=== PATIENT | male | born 1995 | race Caucasian/White ===

== ENCOUNTER 2022-06-23 11:31 | Emergency (ER) | payer SELFPAY ==
[2022-06-23 11:44] VITALS: BP 154/90; PULSE 93; RESP 18; TEMP 36.4; O2SAT 99; BMI 35.6
--- NOTE | 2022-06-23 11:48 | XR_ITS ---
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 Views: 2 or 3 views hip with pelvis when performed. COMPARISON: CR XR LUMBAR SPINE 2-3V 06/23/2022 11:47 AM FINDINGS: Bones/joints: Unremarkable. No acute fracture. Soft tissues: Unremarkable. IMPRESSION: No evidence of acute osseous injury.
--- NOTE | 2022-06-23 11:48 | XR_ITS ---
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 Views: 2 or 3 views. COMPARISON: No relevant prior studies available. FINDINGS: Bones/joints: Slight retrolisthesis of L5 with respect S1. Soft tissues: Unremarkable. IMPRESSION: No evidence of acute osseous injury.
--- NOTE | 2022-06-23 12:01 | EXP.UTC ---
Discharge Plan Disposition Patient Disposition: Home, Self-Care Condition: Good Prescriptions Prescriptions: New cyclobenzaprine 10 mg Tablet 10 mg PO BID PRN (Reason: Muscle Spasm) Qty: 20 0RF ibuprofen [IBU] 800 mg tablet 800 mg PO Q8HP PRN (Reason: Moderate Pain) Qty: 30 0RF Referrals Follow up/Referrals: Artem Corona MD [Staff Physician] - See instructions Activity Restrictions/Add. Instructions Additional Instructions/Restrictions: Go home and rest. You need to rest for the next couple of days. No heavy lifting. No twisting for the next 5 days. Take the oral medications as directed. The muscle relaxer (cyclobenzaprine--Flexeril) will make you drowsy, so don't drive or operate heavy machinery after taking it. Follow up with your regular doctor. GO TO THE ER FOR ANY WORSENING SYMPTOMS OR CONCERN, ESPECIALLY BOWEL OR BLADDER ISSUES, SADDLE AREA NUMBNESS, FEVER, ETC If you continue to have symptom, please follow up with an orthopedic physician. Sometimes there can be fractures that don't show up well on the first set of x-rays. I put in a referral to the orthopedist here, but you need to call his office and schedule an appointment. You could also follow up with your orthopedic physician of your choice. Clinical Impressions Clinical Impression: Low back pain, Acute pain of right hip, Fall Stand Alone Forms Stand Alone Forms: Work/School Release Instructions Patient Instructions: DI for Low Back Pain, DI for Hip Pain Discharge ED Provider: Topher Latif [facility] [place] Stated complaint: [id number] right hip and back Mode of Arrival: Wheelchair Source of Information: Patient Time Seen by Provider: 06/23/22 12:01 Description of Symptoms (Recalled from Triage Doc. by RN): PT REPORTS FALL FROM TRUCK WHILE AT WORK. LANDED ON BACK AND RIGHT HIP. REPORT LOWER BACK AND RIGHT HIP PAIN. PT ABLE TO AMBULATE History of Present Illness Provider Complaint: He was at work today when he fell from the back of a truck. He states that he fell approx 4 to 5 feet. He came down on his lower back and his right hip. He is having low back pain and right hip pain. He is able to walk, but he has worsening pain when he is standing and walking. Related Data Previous Rx's Medication Instructions Recorded cyclobenzaprine 10 mg tablet 10 mg PO BID PRN Muscle Spasm #20 06/23/22 tabs ibuprofen 800 mg tablet (IBU) 800 mg PO Q8HP PRN Moderate Pain 06/23/22 #30 tabs Allergies Allergy/AdvReac Type Severity Reaction Status Date / Time No Known Allergies Allergy Verified 06/23/22 12:26 [facility] Social History Smoking Status: Never smoker alcohol intake: never current occupational status: employed Travel in the last 8 weeks: None ROS Obtained: Yes All systems reviewed & no additional complaints except as documented Constitutional Constitutional: Denies chills, Denies fever(s) and Denies weakness ENT Ears, Nose, Mouth, and Throat: Denies disequilibrium Musculoskeletal Musculoskeletal: Denies abnormal gait, Denies numbness and Denies tingling Integumentary/Breasts Skin/Breast: Denies redness, Denies rash and Denies wounds Neurologic Neurologic: Denies abnormal gait, Denies burning sensations, Denies disequilibrium, Denies focal weakness, Denies numbness, Denies paresthesias, Denies radicular pain, Denies sensory deficit, Denies tingling and Denies weakness Physical Exam General General appearance: alert and in no apparent distress Head Head exam: atraumatic, normocephalic and normal inspection Eye Eye exam: Present normal appearance, PERRL and EOMI ENT ENT exam: Present normal exam, normal oropharynx, mucous membranes moist, TM's normal bilaterally and normal external ear exam Neck Neck exam: Present normal inspection, full ROM and trachea midline; Absent meningismus or lymphadenopathy Chest Chest inspection: Present normal i
[2022-06-23 12:22] VITALS: BP 154/90; PULSE 93; RESP 18; TEMP 36.4; O2SAT 99; BMI 35.6
[2022-06-23 13:40] VITALS: BP 154/90; PULSE 90; RESP 18; TEMP 36.4
== END 2022-06-23 13:41 | disposition home or self-care (01) ==
PROVIDERS: Emergency Provider Nurse Practitioner Family
DX: M54.50 Low back pain, unspecified (principal); M25.561 Pain in right knee; Y93.H9 Activity, other involving exterior property and land maintenance, building and construction; Y92.810 Car as the place of occurrence of the external cause
CPT/HCPCS: 72100; 73502; 99212; G0463